=== PATIENT | male | born 1960 | race Caucasian/White ===

== ENCOUNTER 2023-11-18 13:27 | Outpatient (CLI) | payer BC, SELFPAY ==
--- NOTE | ~2023-11-18 | CT_ITS ---
CT Scan of the Chest without Contrast: Clinical Indication: Pulmonary nodule, shortness of breath Technique: Contiguous sections were acquired throughout the chest without intravenous contrast. Dose reduction technique was used on this scan by utilizing automated exposure control and iterative recon struction technique. The dose-length product (DLP) was 155.73 mGy-cm. Findings: There is no evidence of any significant mediastinal, hilar or axillary lymphadenopathy. Small calcifi ed mediastinal/hilar lymph nodes are present. Mild coronary artery calcifications are present. There is no evidence of pleural or pericardial effusion. There is minimal biapical scarring. Several calcified granulomas are present. Probable additional foc al peripheral scarring in the right upper lobe (axial image [id number]). Images through the upper abdomen reveal no abnormalities. Impression: Mild chronic changes in the lung apices and right upper lobe, as detailed above. No definite acute ab normality or suspicious pulmonary nodule. Reviewed, dictated and finalized at [facility]. Impression: Mild chronic changes in the lung apices and right upper lobe, as detailed above . No definite acute abnormality or suspicious pulmonary nodule.
== END 2023-11-18 13:28 | disposition home or self-care (01) ==
PROVIDERS: Visit Provider Family Medicine
DX: R91.1 Solitary pulmonary nodule (principal)
CPT/HCPCS: 71250